=== PATIENT | female | born 1990 | race Caucasian/White ===

== ENCOUNTER 2017-02-05 23:38 | Emergency (ER) | payer OTHER | END 2017-02-06 02:20 | disposition home or self-care (01) | LOC: D.ER 23:38 | DX: R51 Headache (principal); E03.9 Hypothyroidism, unspecified ==

== ENCOUNTER 2017-02-17 21:25 | Emergency (ER) | payer OTHER | END 2017-02-17 22:53 | disposition home or self-care (01) | LOC: D.ER 21:25 | DX: S39.012A Strain of muscle, fascia and tendon of lower back, initial encounter (principal); X58.XXXA Exposure to other specified factors, initial encounter; Y93.89 Activity, other specified; Y92.89 Other specified places as the place of occurrence of the external cause; E03.9 Hypothyroidism, unspecified; F17.200 Nicotine dependence, unspecified, uncomplicated ==

== ENCOUNTER 2017-03-01 20:12 | Emergency (ER) | payer OTHER | END 2017-03-02 00:18 | disposition home or self-care (01) | LOC: D.ER 20:12 | DX: O03.4 Incomplete spontaneous abortion without complication (principal); O02.81 Inappropriate change in quantitative human chorionic gonadotropin (hCG) in early pregnancy; F17.200 Nicotine dependence, unspecified, uncomplicated ==

== ENCOUNTER 2017-03-11 20:20 | Emergency (ER) | payer OTHER | END 2017-03-12 00:32 | disposition home or self-care (01) | LOC: D.ER 20:20 | DX: R51 Headache (principal) ==

== ENCOUNTER 2017-11-21 18:43 | Emergency (ER) | payer MEDICAID ==
[~2017-11-21] VITALS: Ht 157.5 cm; Wt 90.9 kg
[2017-11-21 19:25] VITALS: Ht 157.5 cm; Wt 90.9 kg
[2017-11-21] MEDS ORDERED: LEVOXYL75 MCG PO (19:27)
[2017-11-21] MEDS ORDERED: CELEXA20 MG PO (19:28)
[2017-11-21] MEDS ORDERED: PRENATAL COMPLE1 TAB PO (19:28)
[2017-11-21 20:29] LABS: BASOPHILS 0.3 % (0-2); HEMATOCRIT 38.8 % (36.0-48.0); HEMOGLOBIN 12.8 g/dL (12-16); LYMPHOCYTES 36.1 % (15-50); MONOCYTES 6.8 % (2-11); NEUTROPHILS 54.8 % (40-80); PLATELET COUNT 192 10x3/uL (130-400); RBC 4.41 10x6/uL (4.00-5.40); RDW 13.9 % (11.5-14.5)
[2017-11-21 20:40] LABS: APPEARANCE CLOUDY (CLEAR); BILIRUBIN NEGATIVE (NEGATIVE); COLOR DK YELLOW (YELLOW); GLUCOSE NEGATIVE (NEGATIVE); KETONE NEGATIVE (NEGATIVE); NITRITE NEGATIVE (NEGATIVE); PROTEIN NEGATIVE (NEGATIVE); SPECIFIC GRAVITY 1.015 (1.005-1.020); UROBILINOGEN NORMAL (NORMAL)
[2017-11-21 20:42] LABS: BACTERIA FEW /hpf (NONE SEEN); EPITHELIAL CELLS 0-5 /hpf (0-5); RED CELLS - URINE 25-50 /hpf (0-5)
[2017-11-21 20:44] LABS: ALKALINE PHOSPHATASE 97 U/L (46-116); ALT (SGPT) 33 U/L (10-68); BILIRUBIN - TOTAL 0.47 mg/dL (0.2-1.3); CALC OSMOLALITY 279 mosm/kg (275-300); CALCIUM 8.8 mg/dL (8.5-10.1); CARBON DIOXIDE 27.6 mmol/L (21.0-32.0); CHLORIDE - SERUM 105 mmol/L (98-107); CREATININE - SERUM 0.9 mg/dL (0.6-1.3); GLUCOSE 96 mg/dL (74-106); POTASSIUM - SERUM 3.8 mmol/L (3.5-5.1); SODIUM 141 mmol/L (136-145); UREA NITROGEN 9 mg/dL (7-18); eGFR NON AFRICAN AMERICAN 78 mL/min (90-120)
[2017-11-21 22:00] VITALS: BP 130/76
== END 2017-11-21 22:05 | disposition home or self-care (01) ==
LOC: D.ER 18:43
PROVIDERS: Family Medicine
DX: O90.89 Other complications of the puerperium, not elsewhere classified (principal); N99.821 Postprocedural hemorrhage of a genitourinary system organ or structure following other procedure; F17.200 Nicotine dependence, unspecified, uncomplicated

== ENCOUNTER 2018-02-08 23:27 | Emergency (ER) | payer MEDICAID ==
[~2018-02-08] VITALS: Ht 157.5 cm; Wt 93.6 kg
[~2018-02-08 23:27] MED LIST: CELEXA20 MG PO; LEVOXYL75 MCG PO; PRENATAL COMPLE1 TAB PO
[2018-02-08 23:28] VITALS: Ht 157.5 cm; Wt 93.6 kg
[2018-02-09] MEDS ORDERED: ROBAXIN-750750 MG PO (00:56)
[2018-02-09 01:23] VITALS: BP 132/85
== END 2018-02-09 01:24 | disposition home or self-care (01) ==
LOC: D.ER 23:27
DX: S39.012A Strain of muscle, fascia and tendon of lower back, initial encounter (principal); W18.30XA Fall on same level, unspecified, initial encounter; Y93.89 Activity, other specified; Y92.89 Other specified places as the place of occurrence of the external cause; F17.200 Nicotine dependence, unspecified, uncomplicated

== ENCOUNTER 2018-05-19 17:01 | Emergency (ER) | payer MEDICAID ==
[~2018-05-19] VITALS: Ht 157.5 cm; Wt 100.0 kg
[~2018-05-19 17:01] MED LIST changes: +ROBAXIN-750750 MG PO
[2018-05-19 17:31] VITALS: Ht 157.5 cm; Wt 100.0 kg
[2018-05-19] MEDS ORDERED: BUTALB-APAP-CA1 EACH PO (18:58)
[2018-05-19] MEDS ORDERED: ZOFRAN ODT4 MG/UDTAB PO (18:58)
[2018-05-19 19:39] VITALS: BP 134/84
== END 2018-05-19 19:39 | disposition home or self-care (01) ==
LOC: D.ER 17:01
DX: G43.909 Migraine, unspecified, not intractable, without status migrainosus (principal); R11.2 Nausea with vomiting, unspecified; F17.200 Nicotine dependence, unspecified, uncomplicated

== ENCOUNTER 2019-02-11 20:46 | Emergency (ER) | payer MEDICAID ==
[~2019-02-11] VITALS: Ht 157.5 cm; Wt 97.7 kg
[~2019-02-11 20:46] MED LIST changes: +BUTALB-APAP-CA1 EACH PO; +ZOFRAN ODT4 MG/UDTAB PO
[2019-02-11 20:52] VITALS: Ht 157.5 cm; Wt 97.7 kg
[2019-02-11] MEDS ORDERED: BUTALB-APAP-CA1 EACH PO (23:37)
[2019-02-11 23:51] VITALS: BP 107/76
== END 2019-02-11 23:15 | disposition home or self-care (01) ==
LOC: D.ER 20:46
DX: G43.909 Migraine, unspecified, not intractable, without status migrainosus (principal)

== ENCOUNTER 2019-06-30 20:53 | Emergency (ER) | payer MEDICAID ==
[~2019-06-30] VITALS: Ht 157.5 cm; Wt 95.5 kg
[2019-06-30 21:09] VITALS: Ht 157.5 cm; Wt 95.5 kg
[2019-06-30] MEDS ORDERED: BUTALB-APAP-CA1 EACH PO (22:15)
[2019-06-30] MEDS ORDERED: ZOFRAN ODT4 MG/UDTAB PO (22:15)
[2019-06-30 23:35] VITALS: BP 122/84
== END 2019-06-30 23:35 | disposition home or self-care (01) ==
LOC: D.ER 20:53
DX: G43.909 Migraine, unspecified, not intractable, without status migrainosus (principal); R11.2 Nausea with vomiting, unspecified; E07.9 Disorder of thyroid, unspecified

== ENCOUNTER 2019-10-31 21:28 | Emergency (ER) | payer MEDICAID ==
[~2019-10-31] VITALS: Ht 157.5 cm; Wt 113.4 kg
[2019-10-31 21:31] VITALS: Ht 157.5 cm; Wt 113.4 kg
[2019-10-31] MEDS ORDERED: HYDROCODON-ACE1 EA10 PO (22:15)
[2019-10-31 22:45] VITALS: BP 128/93
== END 2019-10-31 22:46 | disposition home or self-care (01) ==
LOC: D.ER 21:28
DX: S93.402A Sprain of unspecified ligament of left ankle, initial encounter (principal); E03.9 Hypothyroidism, unspecified; X58.XXXA Exposure to other specified factors, initial encounter; Y93.9 Activity, unspecified; Y92.9 Unspecified place or not applicable